=== PATIENT | female | born 1930 | race Caucasian/White ===

== ENCOUNTER 2017-04-06 10:11 | Day surgery (SDC) | payer MEDICARE, OTHER ==
[~2017-04-06] VITALS: Ht 152.4 cm; Wt 60.0 kg
[~2017-04-06 10:11] MED LIST: ASPIRIN 81M81 MG/TA2 PO; CALCIUM600 M1 PO; COZAAR 50MG50 MG/TAB PO; FOSAMAX 70MG TA70 MG PO; HCTZ12.5TAB PO; TOPROL XL 50MG50 MG PO; [UNRECOGNIZED DRUG - OTHER] PO
[2017-04-06 11:11] VITALS: BP 98/76; PULSE 63; TEMP 97.5
[2017-04-06] MEDS ORDERED: BACTRIM DS 8001 TAB PO (11:22)
[2017-04-06 12:25] VITALS: BP 134/50; PULSE 59; TEMP 98
--- NOTE | 2017-04-06 12:25 | NUR ---
Patient returned from PACU via cart. Patient is awake and alert, no pain or nausea at this time. Patient requests some juice and ice cream to advance her diet. at bedside. Call light in reach, will continue to monitor
[2017-04-06 12:40] VITALS: BP 102/52; PULSE 59
--- NOTE | 2017-04-06 12:40 | NUR ---
Patient tolerating diet well. No pain or nausea reported. Call light in reach. Will continue to monitor
[2017-04-06 12:55] VITALS: BP 116/59; PULSE 60
--- NOTE | 2017-04-06 12:55 | NUR ---
Patient resting comfortably, call light in reach. at bedside. Will continue to monitor
--- NOTE | 2017-04-06 13:10 | NUR ---
Assisted patient across the hallway to the bathroom, patient successfully voided light pink urine, no clots noted. Discontinued patient's IV with no complications, catheter tip intact. Discharge education completed with patient and her at the bedside, verbal understanding returned.
== END 2017-04-06 13:30 | disposition home or self-care (01) ==
LOC: SDCO 10:11
DX: N28.89 Other specified disorders of kidney and ureter (principal); Z90.49 Acquired absence of other specified parts of digestive tract; I10 Essential (primary) hypertension; I48.0 Paroxysmal atrial fibrillation; I27.2 Other secondary pulmonary hypertension; I49.5 Sick sinus syndrome; Z90.710 Acquired absence of both cervix and uterus; Z96.652 Presence of left artificial knee joint; Z95.0 Presence of cardiac pacemaker; Z80.9 Family history of malignant neoplasm, unspecified; M19.90 Unspecified osteoarthritis, unspecified site; Z86.73 Personal history of transient ischemic attack (TIA), and cerebral infarction without residual deficits
CPT/HCPCS: C1769; C2617; J0690; J2405; J2704; J3010; J7120; Q9967